=== PATIENT | male | born 1995 | race Caucasian/White ===

== ENCOUNTER 2016-11-24 09:35 | Emergency (ER) | payer OTHER ==
[~2016-11-24] VITALS: Ht 165.1 cm; Wt 76.0 kg
[2016-11-24 09:38] VITALS: Ht 165.1 cm; Wt 76.0 kg
[2016-11-24] MEDS ORDERED: LIDOCAINE 1% (MDV) 20 ML INJ SC ONE (10:30)
--- NOTE | 2016-11-24 11:03 | ERD ---
ER Documentation Chief Complaint Date/Time DATE: 11/24/16 TIME: 11:02 Chief Complaint right ear pain HPI Patient is a 21-year-old male with no medical problems who presents with right- sided ear pain. He says "my ear piercing got infected and stuck a few weeks ago ". He has had subjective fever but has not tried any antibiotics as of yet. He tried TheraFlu. He does not currently have a primary doctor. He has not been able to remove the earring on his own. ROS All systems reviewed and are negative except as per history of present illness. Allergies Allergies: Coded Allergies: No Known Allergy (Unverified , 11/24/16) PMhx/Soc History of Surgery: Yes (Api ) Anesthesia Reaction: No Hx Neurological Disorder: No Hx Respiratory Disorders: No Hx Cardiac Disorders: No Hx Psychiatric Problems: No Hx Miscellaneous Medical Probl: Yes Hx Alcohol Use: No Hx Substance Use: No Hx Tobacco Use: No Smoking Status: Never smoker FmHx Family History: diabetes Physical Exam Vitals Vital Signs Date Time Temp Pulse Resp B/P Pulse Ox O2 Delivery O2 Flow Rate FiO2 11/24/16 09:38 98.6 106 18 118/58 98 Physical Exam Const: No acute distress Head: Atraumatic Eyes: Normal Conjunctiva ENT: Patient has earrings in the bilateral earlobes, the right earring is unable to be removed at this time and the packing appears to be stuck within the earlobe itself, there is no sign of abscess or cellulitis at this time Neck: Full range of motion..~ No meningismus. Resp: Clear to auscultation bilaterally Cardio: Regular rate and rhythm, no murmurs Abd: Soft, non tender, non distended. Normal bowel sounds Skin: No petechiae or rashes Back: No midline or flank tenderness Ext: No cyanosis, or edema Neur: Awake and alert Psych: Normal Mood and Affect Results 24 hrs Current Medications Medications (Trade) Dose Ordered Sig/Bridget Route PRN Reason Start Time Stop Time Status Last Admin Dose Admin Lidocaine (Xylocaine 1% (Mdv) 20 ml) 20 ml ONCE ONCE SC 11/24/16 10:30 11/24/16 10:31 DC Procedures/MDM Foreign Body Removal by me: Location: Right earlobe Anesthesia: Local 1% Lidocaine Technique: Irrigated. Blunt dissection. Complications: Neurovascularly intact post procedure, I was able to remove the earring from the right earlobe without difficulty including the backing 48 hour wound check. Scar minimization instructions given. I do not see any sign of infection or abscess at this time and I believe outpatient management is appropriate. Departure Diagnosis: Primary Impression: Ear foreign body Encounter type: initial encounter Laterality: right Qualified Code: T16.1XXA - Foreign body of right ear, initial encounter Condition: Fair Patient Instructions: Foreign Body, Ear Canal (Removed) Referrals: [facility] YOU HAVE RECEIVED A MEDICAL SCREENING EXAM AND THE RESULTS INDICATE THAT YOU DO NOT HAVE A CONDITION THAT REQUIRES URGENT TREATMENT IN THE EMERGENCY DEPARTMENT. FURTHER EVALUATION AND TREATMENT OF YOUR CONDITION CAN WAIT UNTIL YOU ARE SEEN IN YOUR DOCTORS OFFICE WITHIN THE NEXT 1-2 DAYS. IT IS YOUR RESPONSIBILITY TO MAKE AN APPOINTMENT FOR FOLOW-UP CARE. IF YOU HAVE A PRIMARY DOCTOR --you should call your primary doctor and schedule an appointment IF YOU DO NOT HAVE A PRIMARY DOCTOR YOU CAN CALL OUR PHYSICIAN REFERRAL HOTLINE AT IF YOU CAN NOT AFFORD TO SEE A PHYSICIAN YOU CAN CHOSE FROM THE FOLLOWING [facility] CLINICS [facility] [address] [facility]. [facility] [address] [facility] [facility] [address] [facility] [facility] [address] [facility]. [facility] [address] [facility]. [facility]. [address] Additional Instructions: Call your primary care doctor TOMORROW for an appointment during the next 1-2 days.See the doctor sooner or return here if your condition worsens before your appointment time. JUANITA COLORADO MD Nov 24, 2016 11:03
== END 2016-11-24 10:53 | disposition home or self-care (01) ==
LOC: FTE 09:35
DX: S00.441A External constriction of right ear, initial encounter (principal); W49.04XA Ring or other jewelry causing external constriction, initial encounter; Y92.9 Unspecified place or not applicable
CPT/HCPCS: Z7502; Z7610